=== PATIENT | female | born 1950 | race Asian ===

== ENCOUNTER 2021-07-03 12:24 | Outpatient (REF) | payer MEDICAID, SELFPAY ==
--- NOTE | ~2021-07-03 | MM_ITS ---
EXAMINATION: BONE DENSITOMETRY CLINICAL INDICATION: Osteoporosis. COMPARISON: This is the patient's baseline examination. TECHNIQUE: Using a [employer] DXA System (software version: 13.1) manufactured by [employer], dual-energy x-ray absorptiometry was performed of the lumbar spine and left hip. The images are of good technical quality. Summary results are attached. FINDINGS: AP SPINE L1-L4: BMD 0.892 g/cm2, Z-score -1.1, T-score -2.4, osteopenia. LEFT FEMUR, NECK: BMD 0.767 g/cm2, Z-score -0.5, T-score -1.9, osteopenia. LEFT FEMUR, TOTAL: BMD 0.808 g/cm2, Z-score -0.4, T-score -1.6, osteopenia. IDENTIFIED RISK FACTORS: Menopause. HISTORY OF FRACTURE: None listed. MEDICATIONS: Calcium supplements or multivitamin, vitamin D. MM/XR DEXA axial skeleton IMPRESSION: 1. DIAGNOSIS: Osteopenia based on the lowest T-score value of -2.4 in the lumbar spine applying World Health Organization criteria. 2. 10-YEAR FRACTURE RISK PREDICTION, FRAX: Major osteoporotic fracture (clinical spine, forearm, hip or shoulder) 6.2%. Hip fracture 1.1%. 3. Treatment Recommendations: NOF guidelines recommend consideration for treatment in postmenopausal women and men age 50 and older presenting with the following: -A hip or vertebral (clinical or morphometric) fracture. -T-score less than or equal to -2.5 at the femoral neck or spine after appropriate evaluation to exclude secondary causes. -Low bone mass at the hip or spine and a 10-year fracture probability by FRAX of greater than or equal to 3% for hip fracture or greater than or equal to 20% for major osteoporotic fracture based on the [place] adapted WHO algorithm. 4. Other Recommendations: All treatment decisions require clinical judgment and consideration of individual patient factors, including patient preferences, comorbidities, previous drug use, risk factors not captured in the FRAX model (e.g. frailty, falls, vitamin D deficiency, increased bone turnover, interval significant decline in bone density) and possible under or overestimation of fracture risk by FRAX. Additional medical evaluation for secondary cause of low bone mineral density may be appropriate. FUTURE SCAN RECOMMENDATION: People with diagnosed cases of osteoporosis or at high risk for fracture should have regular bone mineral density tests. For patients eligible for Medicare, routine testing is allowed once every 2 years. The testing frequency can be increased to one year for patients who have rapidly progressing disease, those who are receiving or discontinuing medical therapy to restore bone mass, or have additional risk factors.
--- NOTE | ~2021-07-03 | MM_ITS ---
EXAMINATION: MM SCREENING DIGITAL BREAST TOMOSYNTHESIS, BILATERAL CLINICAL INFORMATION: Screening. Asymptomatic. The lifetime risk of breast cancer based on the Tyrer-Cuzick Model is 3.2%. COMPARISON: Mammography: None. TECHNIQUE: Digital breast tomosynthesis is performed in both the craniocaudal and mediolateral oblique views along with computer-aided detection (CAD). Synthesized 2-D images are generated from the tomosynthesis. FINDINGS: The breasts are almost entirely fatty (ACR BI-RADS breast composition Category a). There are bilateral circumscribed densities present about the mid breast which are well circumscribed with the largest measuring approximately 9 mm on the left and 8 mm on the right. Targeted ultrasound evaluation of both breasts is recommended. No suspicious grouping of microcalcification is identified. No spiculated lesion seen. MM/MM tomosynthesis screening BI IMPRESSION: Bilateral circumscribed densities for which ultrasound is recommended. ASSESSMENT: BI-RADS 0: Incomplete - Need Additional Imaging Evaluation. RECOMMENDATION: Bilateral breast ultrasound.
== END 2021-07-03 12:25 | disposition home or self-care (01) ==
LOC: HO.MAMMO 12:24
PROVIDERS: PCP Emergency Medicine; Visit Provider Registered Nurse
DX: Z12.31 Encounter for screening mammogram for malignant neoplasm of breast (principal); Z13.820 Encounter for screening for osteoporosis; M85.80 Other specified disorders of bone density and structure, unspecified site; Z78.0 Asymptomatic menopausal state; Z79.899 Other long term (current) drug therapy
CPT/HCPCS: 77063; 77067; 77080

== ENCOUNTER 2021-07-10 13:53 | Outpatient (REF) | payer MEDICAID, SELFPAY ==
--- NOTE | ~2021-07-10 | US_ITS ---
EXAMINATION: US DIAGNOSTIC ULTRASOUND BREAST, BILATERAL CLINICAL INFORMATION: Recall from baseline screening mammography for bilateral circumscribed nodularity. Age 70. No known family history breast cancer. TC score 3%. COMPARISON: Mammography 07/03/2021 (BI-RADS 0, baseline). TECHNIQUE: Ultrasound of the left breast is targeted to the central and outer breast. Ultrasound right breast is targeted to the central upper outer breast. Grayscale imaging and color Doppler are performed on each side without and with harmonics. FINDINGS: Left: There is a simple cyst 3:00 position 3 cm from nipple measuring 8 x 7 x 6 mm. A satellite cyst is seen near this area measuring under 5 mm. There is no solid mass or architectural abnormality or focal duct ectasia. Right: There is a simple cyst 10:00 position 4 cm from nipple measuring approximately 7 x 6 x 4 mm. A satellite cyst is seen near this area measuring under 5 mm. There is no solid mass or architectural abnormality or focal duct ectasia. Results are discussed with the patient and her family at time of visit. US/US breast LT limited IMPRESSION: Small bilateral cysts under 1 cm corresponding to the nodularity on mammography. ASSESSMENT: BI-RADS 2: Benign RECOMMENDATION: Routine annual mammography screening. This patient's information was entered into a reminder system with a target due date for their next mammogram.
--- NOTE | ~2021-07-10 | US_ITS ---
EXAMINATION: US DIAGNOSTIC ULTRASOUND BREAST, BILATERAL CLINICAL INFORMATION: Recall from baseline screening mammography for bilateral circumscribed nodularity. Age 70. No known family history breast cancer. TC score 3%. COMPARISON: Mammography 07/03/2021 (BI-RADS 0, baseline). TECHNIQUE: Ultrasound of the left breast is targeted to the central and outer breast. Ultrasound right breast is targeted to the central upper outer breast. Grayscale imaging and color Doppler are performed on each side without and with harmonics. FINDINGS: Left: There is a simple cyst 3:00 position 3 cm from nipple measuring 8 x 7 x 6 mm. A satellite cyst is seen near this area measuring under 5 mm. There is no solid mass or architectural abnormality or focal duct ectasia. Right: There is a simple cyst 10:00 position 4 cm from nipple measuring approximately 7 x 6 x 4 mm. A satellite cyst is seen near this area measuring under 5 mm. There is no solid mass or architectural abnormality or focal duct ectasia. Results are discussed with the patient and her family at time of visit. US/US breast RT limited IMPRESSION: Small bilateral cysts under 1 cm corresponding to the nodularity on mammography. ASSESSMENT: BI-RADS 2: Benign RECOMMENDATION: Routine annual mammography screening. This patient's information was entered into a reminder system with a target due date for their next mammogram.
== END 2021-07-10 13:54 | disposition home or self-care (01) ==
LOC: HO.MAMMO 13:53
PROVIDERS: Visit Provider Registered Nurse
DX: R92.2 Inconclusive mammogram (principal)
CPT/HCPCS: 76642

== ENCOUNTER 2022-07-14 12:29 | Outpatient (REF) | payer MEDICAID, SELFPAY ==
--- NOTE | ~2022-07-14 | MM_ITS ---
EXAMINATION: MM SCREENING DIGITAL BREAST TOMOSYNTHESIS, BILATERAL CLINICAL INFORMATION: Screening. Asymptomatic. The lifetime risk of breast cancer based on the Tyrer-Cuzick Model is 3%. COMPARISON: Mammography: 07/03/2021 (baseline), bilateral breast ultrasound 07/10/2021. TECHNIQUE: Digital breast tomosynthesis is performed in both the craniocaudal and mediolateral oblique views along with computer-aided detection (CAD). Synthesized 2D images are generated from the tomosynthesis. FINDINGS: There are scattered areas of fibroglandular density (ACR BI-RADS breast composition Category b). The small cysts central left breast are stable. The known cyst central right breast is increased in size, current measurements 1.2 x 1.0 cm and prior measurements 0.8 x 0.6 cm. There is no architectural abnormality or abnormal calcifications. The axilla and skin contours are unremarkable. No significant changes. MM/MM tomosynthesis screening BI IMPRESSION: -No mammographic evidence of malignancy. -Cyst right breast increased in size, 1.2 cm compared with 0.8 cm on prior exam. ASSESSMENT: BI-RADS 2: Benign RECOMMENDATION: Routine annual mammography screening. This patient's information was entered into a reminder system with a target due date for their next mammogram.
== END 2022-07-14 12:30 | disposition home or self-care (01) ==
LOC: HO.MAMMO 12:29
PROVIDERS: PCP Registered Nurse; Visit Provider Registered Nurse
DX: Z12.31 Encounter for screening mammogram for malignant neoplasm of breast (principal)
CPT/HCPCS: 77063; 77067